=== PATIENT | male | born 1965 | race Caucasian/White ===

== ENCOUNTER 2021-07-24 21:07 | Outpatient (REF) | payer OTHER, SELFPAY ==
[2021-07-24 22:14] LABS: HCT 42.7 % (40.0-50.0); HGB 14.7 g/dL (13.5-17.5); MCH 28.7 pg (27.0-33.0); MCHC 34.4 % (32.0-36.0); MCV 83 fL (80-95); MPV 11.1 fL (8.0-11.0); Platelet Count 282 10^3/uL (130-400); RBC 5.12 10^6/uL (4.36-5.78); RDW 12.3 % (11.8-14.1); RDW-SD 37.7 fL; WBC 7.34 10^3/uL (4.4-10.8)
[2021-07-24 22:26] LABS: TSH 1.56 uIU/mL (0.36-3.74)
[2021-07-26 09:48] LABS: Hepatitis B Surface Ag Negative (Negative)
[2021-07-26 10:16] LABS: Hepatitis C Ab w Rflx HCV PCR Negative (Negative)
== END 2021-07-24 21:08 | disposition home or self-care (01) ==
LOC: NCHCN 21:07
PROVIDERS: PCP Internal Medicine; Visit Provider Internal Medicine
DX: L50.9 Urticaria, unspecified (principal); Z11.59 Encounter for screening for other viral diseases
CPT/HCPCS: 85027; 86803; 87340; 84443

== ENCOUNTER 2025-01-09 11:40 | Outpatient (REF) | payer OTHER, SELFPAY ==
[2025-01-09 19:44] LABS: Abs Immature Grans 0.03 10^3/uL (0.0-0.06); HCT 43.0 % (40.0-50.0); HGB 14.7 g/dL (13.5-17.5); Immature Grans % 0.4 %; MCH 27.9 pg (27.0-33.0); MCHC 34.2 % (32.0-36.0); MCV 82 fL (80-95); MPV 10.1 fL (8.0-11.0); Platelet Count 376 10^3/uL (130-400); RBC 5.26 10^6/uL (4.36-5.78); RDW 12.3 % (11.8-14.1); RDW-SD 36.3 fL; WBC 7.47 10^3/uL (4.4-10.8)
[2025-01-09 19:54] LABS: ALT 33 U/L (10-49); AST 38 U/L (<34); Albumin 4.6 g/dL (3.4-5.0); Alkaline Phosphatase 83 U/L (46-116); Anion Gap 6.4 mmol/L (3-11); BUN 13 mg/dL (9-23); Bilirubin, Total 0.40 mg/dL (0.2-1.2); CO2 29.6 mmol/L (20.0-31.0); Calcium 9.6 mg/dL (8.3-10.6); Chloride 103 mmol/L (98-107); Glucose 104 mg/dL (74-106); Potassium 4.4 mmol/L (3.5-5.1); Sodium 139 mmol/L (136-145); Total Protein 8.3 g/dL (5.7-8.2)
[2025-01-11 14:22] LABS: PSA, Screening 12.6 ng/mL (<=3.5)
== END 2025-01-09 11:41 | disposition home or self-care (01) ==
LOC: NCHCN 11:40
PROVIDERS: PCP Internal Medicine; Visit Provider Internal Medicine
DX: R10.9 Unspecified abdominal pain (principal)
CPT/HCPCS: 80053; 84153; 85025

== ENCOUNTER 2025-01-16 17:08 | Outpatient (REF) | payer OTHER, SELFPAY | END 2025-01-16 17:09 | disposition home or self-care (01) | LOC: NCHCN 17:08 | PROVIDERS: PCP Internal Medicine; Visit Provider Internal Medicine | DX: R39.9 Unspecified symptoms and signs involving the genitourinary system (principal) | CPT/HCPCS: 87086 ==